=== PATIENT | female | born 1975 | race Caucasian/White ===

== ENCOUNTER 2017-12-01 23:14 | Emergency (ER) | payer BC ==
--- NOTE | 2017-12-02 00:04 | EDM.PDOC ---
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 She states that when she woke this afternoon around 14:30, she found the left side of her face, under her left eye, to be swollen. She states that the swelling has worsened since then. She denies having any trauma to the face, although she states that she sleeps on her left side. She denies having any sinus pressure, drainage, or pain. No recent fever. She states that she had a similar episode, in the same place, this past New Year 's skyler. She states that she applied ice to the area, as well as Mucinex and ibuprofen, and it resolved. She did not seek medical evaluation for that episode. She states that she again took Mucinex and ibuprofen today, but that it has not helped this time. The patient mentions that she started wearing a new [employer], from [place], about 3 weeks ago. The patient does not have a PCP. Left Eye Pain Score (Numeric/FACES): 7 - Related Data Allergies Allergy/AdvReac Type Severity Reaction Status Date / Time No Known Allergies Allergy Verified 12/01/17 23:19 Home Meds: Home Meds . [No Known Home Meds] 12/01/17 [History] Past Medical History - Past Surgical History HEENT Surgical History: Reports: Oral Surgery ([place] teeth extraction) Neurological Surgical History: Reports: C-Spine (ACDF) Social & Family History - Tobacco Use Smoking Status *Q: Current Every Day Smoker Years of Tobacco use: 26 Packs/Tins Daily: 0.5 - Alcohol Use Alcohol Use History: Yes Alcohol Use Frequency: Socially - Recreational Drug Use Recreational Drug Use: Yes - Living Situation & Occupation Living situation: Reports: , with Family (Son, [id number], grandbaby) Occupation: Employed ([employer]) ED ROS GENERAL - Review of Systems Review Of Systems: See Below Constitutional: Reports: No Symptoms HEENT: Reports: No Symptoms Respiratory: Reports: No Symptoms Cardiovascular: Reports: No Symptoms Endocrine: Reports: No Symptoms GI/Abdominal: Reports: No Symptoms : Reports: No Symptoms Musculoskeletal: Reports: No Symptoms Skin: Reports: No Symptoms Neurological: Reports: No Symptoms Psychiatric: Reports: No Symptoms Hematologic/Lymphatic: Reports: No Symptoms Immunologic: Reports: No Symptoms ED EXAM, SKIN/RASH Exam: See Below Exam Limited By: No Limitations General Appearance: Alert, WD/WN, No Apparent Distress Eye Exam: Bilateral Eye: EOMI, Normal Inspection, PERRL Ears: Normal External Exam, Normal Canal, Hearing Grossly Normal, Normal TMs Nose: Normal Inspection, Normal Mucosa, No Blood Throat/Mouth: Normal Inspection, Normal Lips, Normal Teeth, Normal Gums, Normal Oropharynx, Normal Voice, No Airway Compromise Head: Atraumatic, Facial Swelling (Inferior to left eye only. The swelling has a jelly-like sensation. No fluctuance. No significant tenderness to palpating the swollen area. No associated erythema.) Neck: Normal Inspection, Supple, Non-Tender, Full Range of Motion. No: Lymphadenopathy (L), Lymphadenopathy (R) Respiratory/Chest: No Respiratory Distress, Lungs Clear, Normal Breath Sounds, No Accessory Muscle Use Cardiovascular: Normal Peripheral Pulses, Regular Rate, Rhythm, No Gallop, No JVD, No Murmur, No Rub Skin: Warm, Dry, Intact, Normal Color, No Rash Course - Vital Signs Last Recorded V/S: Last Vital Signs Temp 36.7 C 12/01/17 23:20 Pulse 86 12/01/17 23:20 Resp 18 12/01/17 23:20 BP 156/85 H 12/01/17 23:20 Pulse Ox 100 12/01/17 23:20 - Re-Assessments/Exams Free Text/Narrative Re-Assessment/Exam: 12/02/17 00:00 The patient has swelling under her left eye, but there is no history of trauma, fever, or sinus issues. No fluctuance, and the area is not tender to palpate. I suspect that the patient is having a local reaction to some [place]-made makeup that she has been wearing for the past few weeks, and am therefore recommending that she discontinue its use. I would recommend that she apply ice packs, and she can also try Benadryl, although she has no pruritus. I will refer her to Dr. Castillo for follow-up. Departure - Departure Time of Disposition: 00:01 Disposition: Home, Self-Care 01 Condition: Good Clinical Impression: Left facial swelling - Discharge Information Instructions: Edema, [id number] Referrals: PCP,None [Primary Care Provider] - Sweetie Castillo MD [Physician] - Forms: ED Department Discharge, ED Return to Work/School Form Additional Instructions: You were seen in the emergency room for swelling under your left eye. The cause of your swelling is not known, but is MOST LIKELY due to a local reaction to the [place]-made makeup that you have been wearing. We recommend that you wash off your makeup and do not apply this particular brand again. We recommend you apply an ice pack to the area of swelling for 10-15 minutes, 4- 5 times a day, over the next 48 hours. If the swelling does not go down over the next 2 days, please follow-up with Dr. Sweetie Castillo. If any other problems, please do not hesitate to return to the ER.
== END 2017-12-02 00:09 | disposition home or self-care (01) ==
LOC: JD.ED 23:14
DX: R22.0 Localized swelling, mass and lump, head (principal); F17.210 Nicotine dependence, cigarettes, uncomplicated
CPT/HCPCS: 99282; 99283

== ENCOUNTER 2017-12-22 13:56 | Emergency (ER) | payer BC ==
--- NOTE | 2017-12-22 15:23 | EDM.PDOC ---
ED HPI GENERAL MEDICAL PROBLEM - General Chief Complaint: General Stated Complaint: SWOLLEN GLANDS, FACIAL SWELLING Time Seen by Provider: 12/22/17 14:48 Source of Information: Reports: Patient, Old Records (recent ER visit) History Limitations: Reports: No Limitations - History of Present Illness INITIAL COMMENTS - FREE TEXT/NARRATIVE: 42-year-old female presents for evaluation and treatment of facial swelling and swollen neck and axillary glands. Patient reports she has had facial swelling on and off for about one month. Improves, for about an hour, after taking Benadryl. She was seen in our ER 3 weeks ago. Instructed to stop a foundation that she had been using that was made in [employer]. She states that she has stopped this patient continues to have facial swelling. Patient began concerned today when she developed headaches, nausea and neck pain. She denies any vomiting. She states she has felt feverish but has not checked her temperature. She reports pain in her posterior neck. She reports "a little bit of a sore throat "and also a "little bit "of a cough. No vomiting. No unintentional weight loss or weight gain. Patient does not have a primary care provider. Headache Pain Score (Numeric/FACES): 5 Neck Pain Score (Numeric/FACES): 5 - Related Data Allergies Allergy/AdvReac Type Severity Reaction Status Date / Time No Known Allergies Allergy Verified 12/22/17 14:05 Home Meds: Home Meds . [No Known Home Meds] 12/01/17 [History] Past Medical History - Past Health History Medical/Surgical History: Denies Medical/Surgical History - Past Surgical History HEENT Surgical History: Reports: Oral Surgery Neurological Surgical History: Reports: C-Spine Social & Family History - Tobacco Use Smoking Status *Q: Current Every Day Smoker Years of Tobacco use: 23 Packs/Tins Daily: 0.5 - Recreational Drug Use Recreational Drug Use: No - Living Situation & Occupation Living situation: Reports: , with Family (Son, [id number], grandbaby) Occupation: Employed ([employer]) ED ROS GENERAL - Review of Systems Review Of Systems: See Below Constitutional: Reports: Fever. Denies: Weight Loss, Weight Gain HEENT: Reports: Throat Pain, Other (reports facial swelling) Respiratory: Reports: Cough GI/Abdominal: Reports: Nausea. Denies: Vomiting Musculoskeletal: Reports: Neck Pain Neurological: Reports: Headache Hematologic/Lymphatic: Reports: Swollen Glands (neck and arms) ED EXAM, GENERAL - Physical Exam Exam: See Below Exam Limited By: No Limitations General Appearance: Alert, WD/WN, No Apparent Distress, Thin Eye Exam: Bilateral Eye: Normal Inspection Ears: Normal External Exam, Normal Canal, Hearing Grossly Normal, Normal TMs Nose: Normal Inspection Throat/Mouth: Normal Inspection, Normal Lips, Normal Oropharynx, Normal Voice, No Airway Compromise Head: Atraumatic, Normocephalic. No: Facial Swelling, Sinus Tenderness Neck: Normal Inspection, Lymphadenopathy (L) (anterior cervicle, non tender), Lymphadenopathy (R) (anterior cervicle, non tender) Respiratory/Chest: No Respiratory Distress, Lungs Clear, Normal Breath Sounds Cardiovascular: Normal Peripheral Pulses, Regular Rate, Rhythm, No Murmur Extremities: Normal Inspection, Other (no axillary lymph nodes appreciated) Neurological: Alert, Oriented, Normal Cognition Psychiatric: Normal Affect, Normal Mood Skin Exam: Warm, Dry, Normal Color Course - Vital Signs Last Recorded V/S: Last Vital Signs Temp 35.8 C 12/22/17 14:05 Pulse 76 12/22/17 14:05 Resp BP 130/100 H 12/22/17 14:05 Pulse Ox 98 12/22/17 14:05 - Orders/Labs/Meds Orders: Active Orders 24 hr Category Date Time Status CULTURE STREP A CONFIRMATION [RM] Stat Lab 12/22/17 15:15 Results STREP SCRN A RAPID W CULT CONF [RM] Stat Lab 12/22/17 15:15 Results Labs: Laboratory Tests 12/22/17 12/22/17 12/22/17 Range/Units 15:20 15:20 15:20 WBC 7.43 (3.98-10.04) K/mm3 RBC 4.17 (3.98-5.22) M/mm3 Hgb 13.3 (11.2-15.7) gm/L Hct 39.8 (34.1-44.9) % MCV 95.4 H (79.4-94.8) fl MCH 31.9 (25.6-32.2) pg MCHC 33.4 (32.2-35.5) g/dl RDW Std Deviation 41.8 (36.4-46.3) fL Plt Count 308 (182-369) K/mm3 MPV 9.3 L (9.4-12.3) fl Neutrophils % (Manual) 50 (40-60) % Band Neutrophils % 0 (0-10) % Lymphocytes % (Manual) 40 (20-40) % Atypical Lymphs % 4 % Monocytes % (Manual) 5 (2-10) % Eosinophils % (Manual) 0 L (0.7-5.8) % Basophils % (Manual) 1 (0.1-1.2) Platelet Estimate Adequate Plt Morphology Comment Normal RBC Morph Comment Normal Sodium 140 (136-145) mEq/L Potassium 4.0 (3.5-5.1) mEq/L Chloride 107 (98-107) mEq/L Carbon Dioxide 26 (21-32) mEq/L Anion Gap 11.0 (5-15) BUN 13 (7-18) mg/dL Creatinine 0.8 (0.55-1.02) mg/dL Est Cr Clr Drug Dosing 70.98 mL/min Estimated GFR (MDRD) > 60 (>60) mL/min BUN/Creatinine Ratio 16.3 (14-18) Glucose 87 (74-106) mg/dL Calcium 8.8 (8.5-10.1) mg/dL Total Bilirubin 0.4 (0.2-1.0) mg/dL AST 55 H (15-37) U/L ALT 88 H (14-59) U/L Alkaline Phosphatase 54 (46-116) U/L C-Reactive Protein < 0.2 (<1.0) mg/dL Total Protein 7.3 (6.4-8.2) g/dl Albumin 3.5 (3.4-5.0) g/dl Globulin 3.8 gm/dL Albumin/Globulin Ratio 0.9 L (1-2) Free T4 (0.76-1.46) ng/dL TSH 3rd Generation 4.762 H (0.358-3.74) uIU/mL Monoscreen Negative (NEGATIVE) HIV-1 Ab Rapid Screen Negative (NEGATIVE) 12/22/17 Range/Units 15:20 WBC (3.98-10.04) K/mm3 RBC (3.98-5.22) M/mm3 Hgb (11.2-15.7) gm/L Hct (34.1-44.9) % MCV (79.4-94.8) fl MCH (25.6-32.2) pg MCHC (32.2-35.5) g/dl RDW Std Deviation (36.4-46.3) fL Plt Count (182-369) K/mm3 MPV (9.4-12.3) fl Neutrophils % (Manual) (40-60) % Band Neutrophils % (0-10) % Lymphocytes % (Manual) (20-40) % Atypical Lymphs % % Monocytes % (Manual) (2-10) % Eosinophils % (Manual) (0.7-5.8) % Basophils % (Manual) (0.1-1.2) Platelet Estimate Plt Morphology Comment RBC Morph Comment Sodium (136-145) mEq/L Potassium (3.5-5.1) mEq/L Chloride (98-107) mEq/L Carbon Dioxide (21-32) mEq/L Anion Gap (5-15) BUN (7-18) mg/dL Creatinine (0.55-1.02) mg/dL Est Cr Clr Drug Dosing mL/min Estimated GFR (MDRD) (>60) mL/min BUN/Creatinine Ratio (14-18) Glucose (74-106) mg/dL Calcium (8.5-10.1) mg/dL Total Bilirubin (0.2-1.0) mg/dL AST (15-37) U/L ALT (14-59) U/L Alkaline Phosphatase (46-116) U/L C-Reactive Protein (<1.0) mg/dL Total Protein (6.4-8.2) g/dl Albumin (3.4-5.0) g/dl Globulin gm/dL Albumin/Globulin Ratio (1-2) Free T4 1.01 (0.76-1.46) ng/dL TSH 3rd Generation (0.358-3.74) uIU/mL Monoscreen (NEGATIVE) HIV-1 Ab Rapid Screen (NEGATIVE) - Re-Assessments/Exams Free Text/Narrative Re-Assessment/Exam: 12/22/17 17:27 Rapid strep returned negative. rapid flu returned negative. I reviewed the labs and imaging with the patient. Patient reports she has a history of hepatitis C. This is likely why her liver enzymes are slightly elevated. Patient also reports that she had a goiter previously. Reports this was removed when she had her cervical spine fusion. I will have her follow-up with family medicine for further management. Discharge instructions as documented. Departure - Departure Time of Disposition: 17:28 Disposition: Home, Self-Care 01 Condition: Fair Clinical Impression: Lymphadenopathy - Discharge Information Instructions: Lymphadenopathy Referrals: PCP,None [Primary Care Provider] - Sweetie Castillo MD [Physician] - Forms: ED Department Discharge, ED Return to Work/School Form Additional Instructions: [id number] Tylenol or Motrin as needed for pain relief. Recommend using heat to the sore areas. May take Benadryl for facial swelling. He may also try different antihistamines such as Claritin or Zyrtec which may last longer. Follow-up with family medicine within [address] Castillo at the [facility]. Call [phone] schedule with her. Please return to ER if your symptoms change or worsen. - My Orders Last 24 Hours: My Active Orders 12/22/17 15:15 CULTURE STREP A CONFIRMATION [RM] Stat STREP SCRN A RAPID W CULT CONF [] Stat - Assessment/Plan Last 24 Hours: My Active Orders 12/22/17 15:15 CULTURE STREP A CONFIRMATION [RM] Stat STREP SCRN A RAPID W CULT CONF [RM] Stat
--- NOTE | 2017-12-22 15:54 | CR ---
Chest: Two views of the chest were obtained. Comparison: No prior study. Heart size and mediastinum are normal. Lungs are clear. Previous cervical spine surgery is noted. Minimal scoliosis is noted within the spine. Impression: 1. Nothing acute is identified on two-view chest x-ray. Diagnostic code #2
== END 2017-12-22 17:42 | disposition home or self-care (01) ==
LOC: JD.ED 13:56
DX: R59.1 Generalized enlarged lymph nodes (principal); F17.210 Nicotine dependence, cigarettes, uncomplicated
CPT/HCPCS: 36415; 71046; 80053; 84439; 84443; 85025; 86140; 86308; 87081; 87430; 87804; 99283; G0433

== ENCOUNTER 2018-04-03 10:30 | Emergency (ER) | payer BC ==
--- NOTE | 2018-04-03 11:22 | EDM.PDOC ---
ED HPI GENERAL MEDICAL PROBLEM - General Chief Complaint: Respiratory Problem Stated Complaint: CHEST CONGESTION/HURTS TO BREATHE Time Seen by Provider: 04/03/18 11:07 Source of Information: Reports: Patient History Limitations: Reports: No Limitations - History of Present Illness INITIAL COMMENTS - FREE TEXT/NARRATIVE: 42-year-old female presents for evaluation treatment of a cough and congestion. Reports she's been ill for the last week. States that she is experiencing burning in her chest and a productive cough. Reports that she is coughing up a green sputum. No hemoptysis. She reports some pain in her right ear. Denies any fevers but states she's had chills. No nausea, vomiting or abdominal pain. No sore throat. Reports that she is having some pain on the right side of her chest associated with coughing. No history of any pneumonia. No recent travel. Patient reports she has been around a friend who has been ill with similar symptoms. She was sent over from the walk-in clinic due to concerns over a pulmonary embolus. Patient reports that she's had no previous DVTs or pulmonary embolus. She is not on any contraceptive medications. She denies any recent trauma or any recent surgery. She states that she when she blows her nose there is some blood present but she is not having any hemoptysis. No pain in her legs are swelling in her legs. Her PERC score is therefore 0. Right Chest Pain Score (Numeric/FACES): 7 - Related Data Allergies Allergy/AdvReac Type Severity Reaction Status Date / Time No Known Allergies Allergy Verified 04/03/18 10:39 Home Meds: Home Meds Azithromycin [IJP: Azithromycin] 250 mg PO DAILY #6 tab 04/03/18 [Rx] Past Medical History - Past Health History Medical/Surgical History: Denies Medical/Surgical History - Past Surgical History HEENT Surgical History: Reports: Oral Surgery Neurological Surgical History: Reports: C-Spine Social & Family History - Tobacco Use Smoking Status *Q: Current Every Day Smoker Years of Tobacco use: 24 Packs/Tins Daily: 0.5 - Caffeine Use Caffeine Use: Reports: Coffee, Soda - Recreational Drug Use Recreational Drug Use: No - Living Situation & Occupation Living situation: Reports: , with Family (Son, [id number], grandbaby) Occupation: Employed ([employer]) ED ROS GENERAL - Review of Systems Review Of Systems: See Below Constitutional: Reports: Chills. Denies: Fever HEENT: Reports: Ear Pain (right), Other (reports congestion). Denies: Throat Pain Respiratory: Reports: Cough, Sputum Cardiovascular: Reports: Chest Pain (right sided associated with coughing) GI/Abdominal: Denies: Abdominal Pain, Nausea, Vomiting Musculoskeletal: Denies: Leg Pain Neurological: Reports: Headache ED EXAM, GENERAL - Physical Exam Exam: See Below Exam Limited By: No Limitations General Appearance: Alert, WD/WN, No Apparent Distress, Thin Ears: Normal External Exam, Normal Canal, Hearing Grossly Normal Ear Exam: Left Ear: TM Red, TM Bulging Nose: Normal Inspection Throat/Mouth: Normal Inspection, Normal Lips, Normal Voice, No Airway Compromise Neck: Normal Inspection Respiratory/Chest: No Respiratory Distress, Normal Breath Sounds, Other (course sounding lung sounds right lung base) Cardiovascular: Normal Peripheral Pulses, Regular Rate, Rhythm, No Murmur Neurological: Alert, Oriented, Normal Cognition Psychiatric: Normal Affect, Normal Mood Skin Exam: Warm, Dry, Normal Color Course - Vital Signs Last Recorded V/S: Last Vital Signs Temp 37.3 C 04/03/18 10:35 Pulse 86 04/03/18 10:35 Resp 22 H 04/03/18 10:35 BP 127/87 04/03/18 10:35 Pulse Ox 98 04/03/18 10:35 - Orders/Labs/Meds Orders: Active Orders 24 hr Category Date Time Status Chest 2V [CR] Stat Exams 04/03/18 11:16 Taken INFLUENZA A+B AG SCREEN [RM] Stat Lab 04/03/18 11:20 Ordered - Radiology Interpretation Free Text/Narrative:: Two-view chest x-ray shows in early infiltrate in the right lower lobe when compared to previous chest x-ray December 22. - Re-Assessments/Exams Free Text/Narrative Re-Assessment/Exam: 04/03/18 11:48 influenza returned positive for type B. Reviewed the chest xray and labs with the patient. Will treat for pneumonia as well as for left otitis media. She is out a window for Tamiflu. Follow-up with family medicine within 2 weeks. Discharge instructions as documented. Departure - Departure Time of Disposition: 11:52 Disposition: Home, Self-Care 01 Condition: Fair Clinical Impression: Influenza B Pneumonia Qualifiers: Aspiration pneumonia type: unspecified Laterality: right Lung location: lower lobe of lung Otitis media, acute Qualifiers: Otitis media type: suppurative Laterality: left Recurrence: not specified as recurrent Spontaneous tympanic membrane rupture: without spontaneous rupture Qualified Code(s): H66.002 - Acute suppurative otitis media without spontaneous rupture of ear drum, left ear - Discharge Information Prescriptions: Azithromycin [IJP: Azithromycin] 250 mg PO DAILY #6 tab Instructions: Influenza, Adult, [id number], Otitis Media, Adult, [id number] , Community-Acquired Pneumonia, Adult, [id number] Referrals: PCP,None [Primary Care Provider] - Sweetie Castillo MD [Physician] - Forms: ED Department Discharge Additional Instructions: Take the azithromycin 2 tabs on day 1 followed by one pill by 1 tab on days 2-5 for 5 days of antibiotic total. [id number] Tylenol or Motrin as needed for fever and headache relief. Make sure you are drinking plenty of fluids. Rest Follow-up with family medicine within 2 weeks for recheck of your symptoms. Recommend Dr. Castillo at the [facility]. Call [phone] to schedule with her. Please return to the ER if your symptoms change or worsen. - My Orders Last 24 Hours: My Active Orders 04/03/18 11:16 Chest 2V [CR] Stat 04/03/18 11:20 INFLUENZA A+B AG SCREEN [RM] Stat - Assessment/Plan Last 24 Hours: My Active Orders 04/03/18 11:16 Chest 2V [CR] Stat 04/03/18 11:20 INFLUENZA A+B AG SCREEN [RM] Stat
--- NOTE | 2018-04-03 14:14 | CR ---
Chest: Two views of the chest were obtained. Comparison: Prior chest x-ray of 12/22/17. Increased density is identified within the right middle lobe. Lungs otherwise are clear. Heart size and mediastinum are normal. Previous cervical spine surgery is noted. Impression: 1. Mild increased density within right middle lobe most likely representing small area of pneumonia. Diagnostic code #3
== END 2018-04-03 12:07 | disposition home or self-care (01) ==
LOC: JD.ED 10:30
DX: J10.00 Influenza due to other identified influenza virus with unspecified type of pneumonia (principal); H66.001 Acute suppurative otitis media without spontaneous rupture of ear drum, right ear; F17.210 Nicotine dependence, cigarettes, uncomplicated
CPT/HCPCS: 71046; 71046-26; 87804; 99283; 99284